=== PATIENT | male | born 1970 | race Caucasian/White ===

== ENCOUNTER 2016-09-16 14:31 | Emergency (ER) | payer OTHER ==
[~2016-09-16] VITALS: Ht 210.8 cm; Wt 68.0 kg
[~2016-09-16 14:31] MED LIST: CYCLOBENZAPRINE10 MG PO; HYDROCODONE BIT1 T11 PO; LOMOTIL 0.025 M1 TA1 PO; MEDROL DOSEPAK4 MG PO; MOTRIN800 MG PO; NAPROSYN500 MG PO; NO DAILY MEDS; PERCOCET 325 MG1 TA6 PO; VICODIN ES 7501 TAB PO; ZOFRAN4 MG PO
[2016-09-16] MEDS ORDERED: CYCLOBENZAPRINE10 MG PO (17:19)
[2016-09-16] MEDS ORDERED: MEDROL DOSEPAK4 MG PO (17:19)
[2016-09-16] MEDS ORDERED: NAPROSYN500 MG PO (17:19)
== END 2016-09-16 17:30 | disposition home or self-care (01) ==
LOC: ED 14:31
DX: S39.012A Strain of muscle, fascia and tendon of lower back, initial encounter (principal); F17.200 Nicotine dependence, unspecified, uncomplicated; Z88.0 Allergy status to penicillin; X50.9XXA Other and unspecified overexertion or strenuous movements or postures, initial encounter; Y93.89 Activity, other specified; Y92.9 Unspecified place or not applicable; Y99.9 Unspecified external cause status

== ENCOUNTER 2017-04-01 16:41 | Emergency (ER) | payer OTHER ==
[~2017-04-01] VITALS: Wt 68.0 kg
[2017-04-01] MEDS ORDERED: NAPROSYN500 MG PO (18:40)
== END 2017-04-01 18:46 | disposition home or self-care (01) ==
LOC: ED 16:41
DX: S46.811A Strain of other muscles, fascia and tendons at shoulder and upper arm level, right arm, initial encounter (principal); F17.200 Nicotine dependence, unspecified, uncomplicated; F10.10 Alcohol abuse, uncomplicated; Z88.0 Allergy status to penicillin; Z79.899 Other long term (current) drug therapy; X58.XXXA Exposure to other specified factors, initial encounter; Y93.89 Activity, other specified; Y92.89 Other specified places as the place of occurrence of the external cause; Y99.0 Civilian activity done for income or pay

== ENCOUNTER 2017-09-25 17:31 | Emergency (ER) | payer OTHER ==
[~2017-09-25] VITALS: Ht 177.8 cm; Wt 68.0 kg
[2017-09-25] MEDS ORDERED: SEPTDS PO (18:30)
== END 2017-09-25 18:34 | disposition home or self-care (01) ==
LOC: ED 17:31
DX: S61.412A Laceration without foreign body of left hand, initial encounter (principal); Z88.0 Allergy status to penicillin; W45.8XXA Other foreign body or object entering through skin, initial encounter; Y93.89 Activity, other specified; Y92.89 Other specified places as the place of occurrence of the external cause; Y99.8 Other external cause status

== ENCOUNTER 2017-10-04 12:18 | Emergency (ER) | payer OTHER ==
[~2017-10-04] VITALS: Ht 177.8 cm; Wt 65.8 kg
[~2017-10-04 12:18] MED LIST changes: +SEPTDS PO
== END 2017-10-04 13:15 | disposition home or self-care (01) ==
LOC: ED 12:18
DX: Z48.02 Encounter for removal of sutures (principal); F17.200 Nicotine dependence, unspecified, uncomplicated; Z88.0 Allergy status to penicillin

== ENCOUNTER 2017-12-02 05:05 | Emergency (ER) | payer SELFPAY ==
[~2017-12-02] VITALS: Ht 177.8 cm; Wt 68.0 kg
== END 2017-12-02 05:45 | disposition home or self-care (01) ==
LOC: ED 05:05
DX: R11.2 Nausea with vomiting, unspecified (principal); R19.7 Diarrhea, unspecified; Z88.0 Allergy status to penicillin

== ENCOUNTER → 2018-03-26 | Outpatient (CLI) | payer OTHER | END | disposition home or self-care (01) | LOC: RAD 15:32 | DX: M50.322 Other cervical disc degeneration at C5-C6 level (principal); M85.88 Other specified disorders of bone density and structure, other site; M48.02 Spinal stenosis, cervical region; S13.9XXA Sprain of joints and ligaments of unspecified parts of neck, initial encounter; M43.22 Fusion of spine, cervical region; X58.XXXA Exposure to other specified factors, initial encounter; Y93.89 Activity, other specified; Y92.89 Other specified places as the place of occurrence of the external cause; Y99.8 Other external cause status ==

== ENCOUNTER → 2018-04-03 | Outpatient (CLI) | payer OTHER | END | disposition home or self-care (01) | LOC: MRI 10:00 | DX: T15.82XA Foreign body in other and multiple parts of external eye, left eye, initial encounter (principal); M48.02 Spinal stenosis, cervical region; M47.892 Other spondylosis, cervical region; M43.22 Fusion of spine, cervical region; M25.78 Osteophyte, vertebrae; X58.XXXA Exposure to other specified factors, initial encounter; Y93.89 Activity, other specified; Y92.89 Other specified places as the place of occurrence of the external cause; Y99.8 Other external cause status ==

== ENCOUNTER 2018-05-02 10:52 | Emergency (ER) | payer OTHER ==
[~2018-05-02] VITALS: Ht 177.8 cm; Wt 72.6 kg
[2018-05-02] MEDS ORDERED: ZOFRAN4 MG PO (10:55)
== END 2018-05-02 11:23 | disposition home or self-care (01) ==
LOC: ED 10:52
DX: R19.7 Diarrhea, unspecified (principal); R11.0 Nausea; Z88.0 Allergy status to penicillin

== ENCOUNTER 2018-10-03 15:38 | Emergency (ER) | payer OTHER ==
[~2018-10-03] VITALS: Ht 177.8 cm; Wt 68.0 kg
[2018-10-03] MEDS ORDERED: CLINDAMYCIN HC300 MG PO (17:16)
== END 2018-10-03 17:25 | disposition home or self-care (01) ==
LOC: ED 15:38
DX: S69.92XA Unspecified injury of left wrist, hand and finger(s), initial encounter (principal); K02.9 Dental caries, unspecified; K05.10 Chronic gingivitis, plaque induced; B34.9 Viral infection, unspecified; Z88.0 Allergy status to penicillin; W22.8XXA Striking against or struck by other objects, initial encounter; Y93.89 Activity, other specified; Y92.89 Other specified places as the place of occurrence of the external cause; Y99.8 Other external cause status

== ENCOUNTER → 2018-11-03 | Outpatient (CLI) | payer OTHER ==
[~2018-11-03] MED LIST changes: +CLINDAMYCIN HC300 MG PO; +DICYCLOMINE HCL10 MG PO
== END | disposition home or self-care (01) ==
LOC: LAB 16:25
PROVIDERS: Nurse Practitioner Family
DX: R19.7 Diarrhea, unspecified (principal)

== ENCOUNTER → 2018-11-18 | Outpatient (CLI) | payer OTHER ==
[2018-11-18 18:34] LABS: BILIRUBIN NEGATIVE (NEGATIVE); BLOOD NEGATIVE (NEGATIVE); CLARITY CLEAR (CLEAR); COLOR YELLOW (YELLOW); GLUCOSE NEGATIVE (NEGATIVE); KETONE NEGATIVE (NEGATIVE); LEUKO ESTERASE NEGATIVE (NEGATIVE); NITRITE NEGATIVE (NEGATIVE); SPECIFIC GRAVITY <= 1.005 (1.005-1.030); UROBILINOGEN 0.2 E.U./dl (0.2-1.0)
[2018-11-25 09:50] LABS: GONOCOCCUS BY NAA Negative (Negative)
== END | disposition home or self-care (01) ==
LOC: LAB 16:52
PROVIDERS: Nurse Practitioner Family
DX: R30.0 Dysuria (principal); Z20.2 Contact with and (suspected) exposure to infections with a predominantly sexual mode of transmission

== ENCOUNTER 2018-11-20 16:37 | Emergency (ER) | payer OTHER ==
[~2018-11-20] VITALS: Ht 175.2 cm; Wt 68.0 kg
[~2018-11-20 16:37] MED LIST changes: -DICYCLOMINE HCL10 MG PO
[2018-11-20 17:26] LABS: BASO % 0.2 % (0.0-1.0); EOS # 0.1 10*3/uL (0.0-0.4); EOS % 1.7 % (1.0-4.0); HEMATOCRIT 44.8 % (42.0-52.0); HEMOGLOBIN 15.2 g/dl (14.0-18.0); LYMPH # 2.3 10*3/uL (1.3-4.4); LYMPH % 26.9 % (27.0-41.0); MEAN CELL VOLUME 93.7 fl (80.0-94.0); MEAN CORPUSCULAR HGB 31.8 pg (27.0-31.0); MEAN CORPUSCULAR HGB CONC 33.9 g/dl (33.0-37.0); MEAN PLATELET VOLUME 9.7 fl (9.6-12.3); MONO # 0.9 10*3/uL (0.1-1.0); MONO % 10.1 % (3.0-9.0); NEUT # 5.1 10*3/uL (2.3-7.9); NEUT % 60.9 % (47.0-73.0); PLATELET COUNT AUTOMATED 262 10*3/uL (130-400); RED BLOOD COUNT 4.78 10*6/uL (4.50-5.90); RED CELL DISTRI WIDTH 13.1 % (0-14.5); WHITE BLOOD COUNT 8.4 10*3/uL (4.8-10.8)
[2018-11-20 17:53] LABS: ALKALINE PHOSPHATASE 77 U/L (45-117); BUN 9 mg/dl (7-24); CHLORIDE 108 mmol/L (98-107); LIPASE 175 U/L (73-393); SGOT/AST 18 IU/L (3-35); SGPT/ALT 25 U/L (12-78); SODIUM 139 mmol/L (136-145); TOTAL PROTEIN 7.1 gm/dL (6.4-8.2)
[2018-11-20] MEDS ORDERED: DICYCLOMINE HCL10 MG PO (19:50)
== END 2018-11-20 20:00 | disposition home or self-care (01) ==
LOC: ED 16:37
PROVIDERS: Nurse Practitioner Family
DX: K52.1 Toxic gastroenteritis and colitis (principal); T36.95XA Adverse effect of unspecified systemic antibiotic, initial encounter; Y92.89 Other specified places as the place of occurrence of the external cause

== ENCOUNTER 2020-05-16 11:16 | Emergency (ER) | payer SELFPAY ==
[~2020-05-16] VITALS: Ht 172.7 cm; Wt 68.0 kg
[~2020-05-16 11:16] MED LIST changes: +DICYCLOMINE HCL10 MG PO
[2020-05-16] MEDS ORDERED: CLINDAMYCIN HC300 MG PO (12:03)
== END 2020-05-16 12:30 | disposition home or self-care (01) ==
LOC: ED 11:16
DX: K04.7 Periapical abscess without sinus (principal); K02.9 Dental caries, unspecified; F17.200 Nicotine dependence, unspecified, uncomplicated; Z88.0 Allergy status to penicillin

== ENCOUNTER 2022-11-07 16:25 | Emergency (ER) | payer OTHER ==
[~2022-11-07] VITALS: Ht 172.7 cm; Wt 71.2 kg
== END 2022-11-07 20:11 | disposition left against medical advice (07) ==
LOC: ED 16:25
DX: M79.672 Pain in left foot (principal); Z88.0 Allergy status to penicillin

== ENCOUNTER → 2024-07-26 | Outpatient (CLI) | payer OTHER ==
[2024-07-26 08:47] LABS: BASO % 0.4 % (0.0-1.0); EOS # 0.3 10*3/uL (0.0-0.4); EOS % 3.2 % (1.0-4.0); MEAN CELL VOLUME 94.9 fl (80.0-94.0); MEAN CORPUSCULAR HGB 30.8 pg (27.0-31.0); MEAN CORPUSCULAR HGB CONC 32.4 g/dl (33.0-37.0); MEAN PLATELET VOLUME 10.5 fl (9.6-12.3); MONO # 0.7 10*3/uL (0.1-1.0); NEUT # 5.4 10*3/uL (2.3-7.9); NEUT % 66.2 % (47.0-73.0); PLATELET COUNT AUTOMATED 243 10*3/uL (130-400); RED BLOOD COUNT 4.74 10*6/uL (4.50-5.90); WHITE BLOOD COUNT 8.2 10*3/uL (4.8-10.8)
[2024-07-26 09:14] LABS: ALKALINE PHOSPHATASE 69 U/L (46-116); BUN 15 mg/dl (9-23); CHLORIDE 106 mmol/L (98-107); CHOLESTEROL 182 mg/dL (<200); FREE T4 1.16 ng/dl (0.89-1.76); LDL CHOLESTEROL 124 mg/dL (9-159); POTASSIUM 4.6 mmol/L (3.4-5.1); SGPT/ALT 16 U/L (5-49); TRIGLYCERIDES 124 mg/dl (<150); VALPROIC ACID (DEPAKENE) 70.2 ug/ml (50-100)
== END | disposition home or self-care (01) ==
LOC: LAB 08:15
PROVIDERS: ATTEND Nurse Practitioner
DX: F25.0 Schizoaffective disorder, bipolar type (principal); N52.9 Male erectile dysfunction, unspecified; R53.83 Other fatigue; F41.1 Generalized anxiety disorder

== ENCOUNTER → 2025-01-10 | Outpatient (CLI) | payer OTHER ==
[2025-01-10 10:30] LABS: BASO # 0.0 10*3/uL (0.0-0.1); BASO % 0.1 % (0.0-1.0); EOS # 0.1 10*3/uL (0.0-0.4); EOS % 0.8 % (1.0-4.0); MEAN CELL VOLUME 93.3 fl (80.0-94.0); MEAN CORPUSCULAR HGB 31.6 pg (27.0-31.0); MEAN PLATELET VOLUME 9.9 fl (9.6-12.3); MONO # 1.0 10*3/uL (0.1-1.0); MONO % 8.7 % (3.0-9.0); NEUT # 7.5 10*3/uL (2.3-7.9); NEUT % 65.4 % (47.0-73.0); NUCLEATED RED BLOOD CELL 0.0 % (0.0-0.0); NUCLEATED RED BLOOD CELL 0.0 10*3/uL (0.0-0.0); PLATELET COUNT AUTOMATED 259 10*3/uL (130-400); RED CELL DISTRI WIDTH 13.2 % (0-14.5)
[2025-01-10 10:59] LABS: BUN 13 mg/dl (9-23); FREE T4 1.33 ng/dl (0.89-1.76); LDL CHOLESTEROL 137 mg/dL (9-159); SGPT/ALT 14 U/L (5-49); VALPROIC ACID (DEPAKENE) 82.7 ug/ml (50-100)
== END ==
LOC: LAB 10:10
PROVIDERS: ATTEND Nurse Practitioner
DX: F25.0 Schizoaffective disorder, bipolar type (principal); F41.1 Generalized anxiety disorder